=== PATIENT | female | born 1945 | race African-American/Black ===

== ENCOUNTER 2017-01-04 19:51 | Emergency (ER) | payer MEDICARE, BC ==
[~2017-01-04 19:51] MED LIST: ACCUPRIL PO; ANTIVERT PO; APRISO; ASACOL400 MG PO; ASPIRIN; ASPIRIN PO; ATARAX PO; AURALGAN OTIC S10 M1 AD; AYR; AZOR 5-20 MG T1 EACH; BACLOFEN10 MG PO; BACTRIM DS TABL1 TA1 PO; BACTRIM DS TABL1 TAB PO; BENTYL20 M1 PO; BENTYL20 MG PO; BENZONATATE PO; BIAXIN PO; BROMPHED DM PO; CALCITRIOL0.25 MCG; CALCITRIOL0.25 MCG PO; CIMZIA; CIPRO PO; CLARITIN10 M3 PO; CORAL CALCIUM1 GM; DARVOCET-N 1001 TAB PO; DOXYCYCLINE PO; ENTOCORT EC3 MG; FAMOTIDINE20 MG PO; FLAGYL PO; FLOMAX0.4 M1 PO; IMURAN50 MG; IMURAN50 MG PO; IRON1 TA1 PO; IRON1 TAB; KCL PO; KLOR-CON PO; LEVAQUIN PO; LIALDA1.2 G PO; LORTAB 5/500 TA1 TA1 PO; MACROBID100 M1 PO; MACROBID100 MG PO; MEDI-MECLIZINE25 M1 PO; MEDROL DOSEPAK4 MG DOB; METOPROLOL TAR25 MG PO; METRONIDAZOLE PO; MICRO-K PO; MICRO-K10 ME1 PO; MICRO-K10 ME2 PO; NEURONTIN PO; NEXIUM PO; NORVASC10 MG; OMNICEF PO; PANTOPRAZOLE SO20 MG PO; PEPCID AC20 M2 PO; PEPCID PO; PERCOCET 5-3251 TAB PO; PHENERGAN PO; PHENERGAN12.5 MG PO; PLAVIX PO; POTASSIUM CHLORIDE; PREDNISONE PO; PREVACID PO; PRILOSEC20 MG PO; PROAIR HFA8.5 GM IH; PROTONIX PO; PYRIDIUM PO; QUINAPRIL HCL20 MG PO; QUINAPRIL-HCTZ1 TA2 PO; RHINOCORT AQUA8.6 GM; ROBITUSSIN100 MG/52 PO; SKELAXIN PO; TYLENOL #3 PO; ULTRAM PO; VICODIN 5/1 TAB 5/50 PO; VITAMIN B 12 SHOT; VITAMIN B-1000 MCG/1 IJ; VITAMIN D 4001 UDTAB PO; VITAMIN D1000 UNI2 PO; VITAMIN D2400 UNIT; VITAMIN D250000 UNIT PO; VITAMIN D400 UNI2 PO; VITAMIN D50000 UNIT PO; ZEGERID 40 MG C1 CAP; ZEGERID 40 MG C1 CAP PO; ZITHROMAX PO; ZOFRAN ODT4 MG PO
[2017-01-04] MEDS ORDERED: IRON325 MG PO (20:09)
[2017-01-04 21:48] LABS: URINE SOURCE CLEAN CATCH
[2017-01-04 21:50] LABS: URINE APPEARANCE CLEAR; URINE BILIRUBIN NEG (NEG); URINE BLOOD 2+ (NEG); URINE COLOR YELLOW; URINE GLUCOSE NEG (NORM); URINE KETONE NEG (NEG); URINE LEUKOCYTE ESTERASE 3+ (NEG); URINE NITRATE NEG (NEG); URINE PROTEIN NEG (NEG); URINE UROBILINOGEN 0.2 MG/DL (NORM)
[2017-01-04 21:51] LABS: MICRO INDICATED? YES
[2017-01-04 21:53] LABS: CULTURE INDICATED? YES; URINE BACTERIA 1+ (NEG); URINE SQUAMOUS EPITHELIAL CELL OCCAS /[HPF]; URINE TRANSITIONAL EPI CELLS FEW /[HPF]
== END 2017-01-04 22:52 | disposition home or self-care (01) ==
LOC: SED 19:51
PROVIDERS: Emergency Medicine
DX: N30.01 Acute cystitis with hematuria (principal); R19.7 Diarrhea, unspecified; K21.9 Gastro-esophageal reflux disease without esophagitis; K50.90 Crohn's disease, unspecified, without complications; Z86.73 Personal history of transient ischemic attack (TIA), and cerebral infarction without residual deficits; Z87.442 Personal history of urinary calculi; Z90.49 Acquired absence of other specified parts of digestive tract; Z79.899 Other long term (current) drug therapy; Z88.0 Allergy status to penicillin; Z88.2 Allergy status to sulfonamides; Z91.040 Latex allergy status
CPT/HCPCS: 81003; 87086; 96372; 99284; J1885

== ENCOUNTER 2017-02-25 10:16 | Emergency (ER) | payer MEDICARE, BC ==
--- NOTE | ~2017-02-25 | CR72 ---
[facility]. [facility] A Service of [facility] & [facility] RADIOLOGY TEXT RESULTS PATIENT: ARTURO ROME LOCATION: SED : 47 UNIT #: [id number] AGE: [address]: Angel Love MD SEX: F ORDER DR: [id number] [address] [address] [id number] MR#: [id number] Acc #: [id number] NAME: ARTURO ROME. : 1945 SEX: F STUDY DATE/TIME: 02/25/2017 11:18 UNIT: SED ROOM: STUDY DESCRIPTION: CR Chest Single View Portable Attending Physician: Angel Love M.D. Ordering Physician: Angel Love M.D. Primary Care Physician: Johnny Hayward M.D. MEDICAL IMAGING REPORT This report is preliminary unless electronic signature is present. EXAM AP portable chest date 02/25/2070 HISTORY Chest pain for 2 weeks. Greater than 30-year smoking history. COMPARISON PA and lateral chest radiograph 08/28/2016. FINDINGS No acute airspace disease. Heart size upper limits normal. Pulmonary vascular distribution is normal. Calcific atherosclerotic changes are demonstrated within the thoracic aorta. No pleural effusion or pneumothorax. IMPRESSION 1. No acute cardiopulmonary findings. Dictated by... Krissy Matute M.D. THIS IS AN ELECTRONICALLY VERIFIED REPORT Krissy Matute M.D. at 02/26/2017 2:20 PM LLParas/ethan TD: 02/25/2017 17:02 JOB #: [id number] MEDICAL IMAGING REPORT Page 1 of 1
--- NOTE | ~2017-02-25 | EKG ---
PATIENT: ARTURO ROME UNIT #: [id number] Ventricular Rate: 56 BPM Atrial Rate: 56 BPM P-R Interval: 146 ms QRS Duration: 86 ms Q-T Interval: 402 ms QTC Calculation(Bezet): 387 ms P Hardesty: 40 degrees Calculated R Hardesty: -32 degrees Calculated T Hardesty: -4 degrees Diagnosis Line: Sinus bradycardia Diagnosis Line: Left axis deviation T wave abnormality, consider Diagnosis Line: inferior ischemia Diagnosis Line: Voltage criteria for left ventricular hypertrophy Diagnosis Line: Abnormal ECG Diagnosis Line: When compared with ECG of 03-APR-2016 00:40, Diagnosis Line: No significant change was found Diagnosis Line: Confirmed by ABIGAIL VALLE MD ([id number]) on 02/26/2017 Diagnosis Line: 4:37:57 PM INTERPRETING MD: TORI ROYAL
[~2017-02-25 10:16] MED LIST changes: +IRON325 MG PO
[2017-02-25] MEDS ORDERED: VITAMIN D2 PO (10:41)
[2017-02-25] MEDS ORDERED: FERROUS SULFATE PO (10:41)
[2017-02-25] MEDS ORDERED: AMLODIPINE BESYLATE PO (10:41)
[2017-02-25 11:08] LABS: POC - CKMB 1.4 ng/mL (0.0-7.9); POC - TROPONIN <0.05 ng/mL (<=0.05)
[2017-02-25 11:13] LABS: BASOPHIL% 0.7 % (0-2.5); EOSINOPHIL# 0.1 X10e3 (0-0.7); EOSINOPHIL% 2.1 % (0.0-7.0); HEMATOCRIT 36.6 % (35.0-45.0); HEMOGLOBIN 12.2 gm/dL (12.0-16.0); LYMPHOCYTE# 0.9 X10e3 (1.0-3.5); LYMPHOCYTE% 18.6 % (17.0-45.0); MEAN CELL VOLUME 81.3 FL (83-96); MEAN CORPUSCULAR HGB CONC 33.3 g/dL (30-36); MEAN PLATELET VOLUME 7.8 FL (6.5-11.5); MONOCYTE# 0.3 X10e3 (0-1.0); MONOCYTE% 6.3 % (3.0-12.0); NEUTROPHIL# 3.6 X10e3 (1.5-7.1); NEUTROPHIL% 72.3 % (40-75); PLATELET COUNT 201 X10e3 (140-420); RED CELL DISTRIBUTION WIDTH 17.1 % (11.0-15.5)
[2017-02-25 11:19] LABS: DIFF IND NO
[2017-02-25 11:42] LABS: ALBUMIN SERUM 3.9 g/dL (3.5-5.0); ALKALINE PHOSPHATASE 79 U/L (32-92); ALT (SGPT) 13 U/L (10-40); AST (SGOT) 21 U/L (10-42); BILIRUBIN,TOTAL 0.4 mg/dL (0.2-2.0); BLOOD UREA NITROGEN 13 mg/dL (9-23); BUN/CREATININE RATIO 16.25; CALCIUM SERUM 9.3 mg/dL (8.4-10.2); CARBON DIOXIDE 25 mmol/L (22-31); CHLORIDE 109 mmol/L (100-111); CREATININE SERUM 0.8 mg/dL (0.6-1.4); GLOM FILT RATE Estimated 86.7 mL/min (>60); GLUCOSE FASTING 145 mg/dL (70-110); POTASSIUM 3.5 mmol/L (3.5-5.1); PROTEIN TOTAL SERUM 6.9 g/dL (6.0-8.3); SODIUM 141 mmol/L (135-145)
[2017-02-25 11:46] LABS: BILIRUBIN, DIRECT <0.1 mg/dL (0.0-0.2); BILIRUBIN,INDIRECT 0.3 mg/dL (0.0-0.9)
== END 2017-02-25 13:22 | disposition home or self-care (01) ==
LOC: SED 10:16
PROVIDERS: Emergency Medicine
DX: R07.89 Other chest pain (principal)
CPT/HCPCS: 71010; 80048; 80076; 82553; 83874; 84484; 85025; 93005; 99285